=== PATIENT | female | born 1975 | race Caucasian/White ===

== ENCOUNTER 2020-11-28 13:39 | Emergency (ER) | payer OTHER ==
[~2020-11-28] VITALS: Ht 180.3 cm; Wt 84.4 kg
[2020-11-28 14:00] LABS: ABSOLUTE BASOPHILS 0.1 thou/uL (0.0-0.2); ABSOLUTE EOSINOPHILS 0.2 thou/uL (0.0-0.7); ABSOLUTE LYMPHOCYTES 3.3 thou/uL (0.8-5.3); ABSOLUTE MONOCYTES 0.8 thou/uL (0.0-1.2); BASOPHILS 0.6 %; EOSINOPHILS 1.7 %; HEMATOCRIT 38.6 % (37.0-47.0); LYMPHOCYTES 32.2 %; MCH 29.3 pg (26.0-34.0); MCHC 33.6 g/dL (28.0-37.0); MCV 87.1 fL (80.0-100.0); MONOCYTES 7.7 %; MPV 8.8 fl. (7.2-11.1); NUCLEATED RBCS 0 /100WBC; PLATELET COUNT* 366 thou/uL (150-400); POLYS 57.8 %; RBC 4.43 mil/uL (4.20-5.00); RDW-CV 13.6 % (10.5-14.5); WBC 10.3 thou/uL (4.0-11.0)
[2020-11-28 14:13] LABS: APTT 21.8 Seconds (25.0-31.3); PROTIME 10.4 Seconds (9.20-11.50)
[2020-11-28 14:22] LABS: ALBUMIN 3.9 g/dL (3.4-5.0); CK-MB MASS 0.8 ng/mL (<0.5-3.6); MAGNESIUM 1.9 mg/dL (1.8-2.4); TOTAL BILIRUBIN 0.4 mg/dL (<0.1-1.0); TOTAL PROTEIN 7.6 g/dL (6.4-8.2)
[2020-11-28 16:25] VITALS: BP 106/60
--- NOTE | 2020-11-29 11:10 | EKG ---
[place] [address] ELECTROCARDIOGRAM REPORT Name: TEVIN TEIXEIRA Room: [facility]#: [id number] Admission: 11/28/20 Attend Phys: Discharge: 11/28/20 Date of : 77 Date of Service: 11/28/20 1343 Report #: [id number] THIS REPORT FOR: //name// [facility] ED Test Date: 2020-11-28 Test Time: 13:43:38 Pat Name: TEVIN TEIXEIRA Department: Room: Gender: F [employer] Teacher: CCD : 1975 Requested By: Jesús Ferrell Order Number: [id number] MD: Aditya Turner Measurements Intervals [place] Rate: 69 P: 73 DE: 137 QRS: 64 QRSD: 91 T: 63 QT: 417 QTc: 447 Interpretive Statements Sinus rhythm Baseline wander in lead(s) V5 No previous ECG available for comparison Electronically Signed On 11-29-2020 11:10:35 DESK DIRECTOR by Aditya Turner [email or web address] <ELECTRONICALLY SIGNED> By: Aditya Turner MD, [facility] 11/29/20 1110 134 42 Aditya Turner MD, [facility] /EPI
== END 2020-11-28 16:25 | disposition home or self-care (01) ==
LOC: M.ERS 13:39
PROVIDERS: Family Medicine
DX: R07.89 Other chest pain (principal); Z88.6 Allergy status to analgesic agent